=== PATIENT | female | born 1955 | race Caucasian/White ===

== ENCOUNTER 2018-08-27 14:50 | Emergency (ER) | payer BC ==
[2018-08-27 15:06] VITALS: BP 134/85
--- NOTE | 2018-08-27 15:08 | UC ---
Abdominal Pain Female HPI - HPI Summary HPI Summary: 63 yo female presents with RUQ pain for the last 3-4 weeks. She tells me that about a week before rey she developed intermittent "nagging" RUQ pain associated with mild nausea. Since this started has been happening more frequently and pain can reach a 7/10. Eating and drinking does not change her discomfort. She also has noticed that her stools are floating more often over the last week or two. She has family members that have had their gallbladder removed and pt is concerned that her symptoms are related to her gallbladder. She denies fever, SOB, chest pain, vomiting, diarrhea, dysuria. - History of Current Complaint Chief Complaint: UCAbdominalPain Stated Complaint: ABDOMINAL PAIN Time Seen by Provider: 08/27/18 15:07 Hx Obtained From: Patient Hx Last Menstrual Period: post menopause Onset/Duration: Sudden Onset Severity Initially: Mild Severity Currently: Mild Pain Intensity: 1 Pain Scale Used: 0-10 Numeric Location: Discrete At: RUQ Allergies/Adverse Reactions: Allergies Allergy/AdvReac Type Severity Reaction Status Date / Time ciprofloxacin [From Cipro] Allergy Swelling Verified 08/27/18 15:07 Home Medications: Home Medications Multivitamin [Multivitamins] 1 cap PO 08/27/18 [History] [place]-3 Fatty Acids/Fish Oil [Fish Oil 1,000 mg Capsule] 08/27/18 [History] Zaleplon [Sonata] 08/27/18 [History] buPROPion SR TAB* [Wellbutrin SR TAB*] 150 mg PO BID 08/27/18 [History Confirmed 08/27/18] PMH/Surg Hx/FS Hx/Imm Hx - Additional Past Medical History Additional PMH: None - Surgical History Surgical History: None - Family History Known Family History: Positive: None - Social History Occupation: Employed Full-time Lives: With Family Alcohol Use: Occasionally Substance Use Type: None Smoking Status (MU): Never Smoked Tobacco Review of Systems All Other Systems Reviewed And Are Negative: Yes Constitutional: Positive: Negative Skin: Positive: Negative Respiratory: Positive: Negative Cardiovascular: Positive: Negative Gastrointestinal: Positive: Abdominal Pain Neurovascular: Positive: Negative Neurological: Positive: Negative Psychological: Positive: Negative Physical Exam - Summary Physical Exam Summary: GENERAL: NAD. WDWN. No pain distress. SKIN: No rashes, sores, lesions, or open wounds. NECK: Supple. Nontender. No lymphadenopathy. CHEST: CTAB. No r/r/w. No accessory muscle use. Breathing comfortably and in no distress. CV: RRR. Without m/r/g. Pulses intact. Cap refill <2seconds ABDOMEN: Mild RUQ TTP. Negative weinberg sign. Soft. No distention or guarding. No CVA tenderness. Bowel sounds present NEURO: Alert. PSYCH: Age appropriate behavior. Triage Information Reviewed: Yes Vital Signs: Initial Vital Signs Temp 97.0 F 08/27/18 14:58 Pulse 74 08/27/18 14:58 Resp 16 08/27/18 14:58 BP 134/85 08/27/18 14:58 Pulse Ox 97 08/27/18 14:58 Laboratory Tests 08/27/18 15:19 POC Urine Color Yellow POC Urine Clarity Clear POC Urine pH 5.5 POC Ur Specif Melrude >= 1.030 POC Urine Protein Negative POC Ur Glucose (UA) Negative POC Urine Ketones Negative POC Urine Blood Negative POC Urine Nitrite Negative POC Urine Bilirubin Negative POC Urine Urobilinogen 0.2 POC U Leukocyte Esteras Negative Vital Signs Reviewed: Yes Abd Pain Female Course/Dx - Course Course Of Treatment: US: IMPRESSION: Cholelithiasis without biliary duct dilatation. Discussed results with pt. Advised to try low fat diet and will refer to general surgery for further eval. - Differential Dx/Diagnosis Provider Diagnosis: Cholelithiasis Discharge - Sign-Out/Discharge Documenting (check all that apply): Patient Departure All imaging exams completed and their final reports reviewed: No Studies - Discharge Plan Condition: Stable Disposition: HOME Patient Education Materials: Gallstones (ED), Low Fat Diet (ED) Referrals: Park Jimenez MD [Primary Care Provider] - Jamie Gonzales MD [Medical Doctor] - As Soon As Possible Additional Instructions: If you develop a fever, shortness of breath, chest pain, new or worsening symptoms - please call your PCP or go to the ED. Please call General Surgery at the number below to schedule a follow up appointment for further evaluation. - Billing Disposition and Condition Condition: STABLE Disposition: Home - Attestation Statements Provider Attestation: I was available for consult. This patient was seen by the PAULINE. The patient was not presented to, seen by, or examined by me. -Koko
== END 2018-08-27 16:38 | disposition home or self-care (01) ==
LOC: UCEAST 14:50
DX: K80.20 Calculus of gallbladder without cholecystitis without obstruction (principal); Z88.1 Allergy status to other antibiotic agents
CPT/HCPCS: 76705; 81003; 99211; 99212; G0463

== ENCOUNTER 2019-07-13 15:26 | Emergency (ER) | payer BC ==
[2019-07-13 16:20] LABS: ABS Eosinophils 0.1 10^3/ul (0-0.6); ABS Lymphocytes 1.1 10^3/ul (1.0-4.8); ABS Monocytes 0.8 10^3/ul (0-0.8); ABS Neutrophils 3.6 10^3/ul (1.5-7.7); Eosinophil % 2.1 %; Hematocrit 34 % (35-47); Hemoglobin 11.9 g/dL (12.0-16.0); Lymphocyte % 19.5 %; Mean Corpuscular HGB Conc 35 g/dL (31-36); Mean Corpuscular Hemoglobin 31 pg (27-31); Mean Corpuscular Volume 87 fL (80-97); Mean Platelet Volume 7.4 fL (7.4-10.4); Platelet Count 233 10^3/uL (150-450); Red Blood Count 3.89 10^6 /uL (3.70-4.87); Red Cell Distribution Width 12 % (10-15); White Blood Count 5.6 10^3/uL (3.5-10.8)
[2019-07-13 16:35] LABS: Albumin 3.8 g/dL (3.2-5.2); Calcium 9.4 mg/dL (8.6-10.3); Potassium 3.9 mmol/L (3.5-5.0); Total Bilirubin 0.6 mg/dL (0.2-1.0)
[2019-07-13 16:41] LABS: Albumin/Globulin Ratio 1.2 (1-3); BUN/Creatinine Ratio 14.5 (8-20); EGFR African American 93.3 (>60); EGFR Non-African American 77.1 (>60); Globulin 3.1 g/dL (2-4); Total Protein 6.9 g/dL (6.4-8.9)
[2019-07-13 18:13] LABS: Urine Appearance Clear; Urine Bilirubin Negative (Negative); Urine Blood Negative (Negative); Urine Color Yellow; Urine Glucose Negative (Negative); Urine Ketones Trace (Negative); Urine Nitrite Negative (Negative); Urine Protein Negative (Negative); Urine Specific Gravity 1.009 (1.010-1.030); Urine Urobilinogen Negative (Negative)
[2019-07-13 18:19] LABS: Urine Bacteria Absent (Absent); Urine Red Blood Cell Absent (Absent); Urine Squamous Epithelial Cell Present (Absent); Urine White Blood Cell Trace(0-5/hpf) (Absent)
--- NOTE | 2019-07-13 18:49 | ED ---
Abdominal Pain/Female - HPI Summary HPI Summary: Patient is a 64 y/o F presenting to the ED for a chief complaint of fever. On , patient had a cholecystectomy performed by Dr. Vitale at [facility]. Since the surgery, she has felt nausea, urinary frequency, cough, fatigue, decreased appetite, and pain near the incision site on her abdomen. She reports the pain is 3/10 in severity at rest, but is 7/10 in severity doing the exercises recommended by her surgical team. The pain has improved on from 07/12/19. On 07/13/19, patient reports a fever of 101 F. Patient denies vomiting, diarrhea, or rash. She has had a bowel movement since her surgery. She denies any aggravating or alleviating factors. PMHx is not significant. Medications reviewed. Allergies noted. - History of Current Complaint Chief Complaint: EDAbdPain Stated Complaint: GALL BLADDER SURGERY-FEVER Time Seen by Provider: 07/13/19 17:05 Hx Obtained From: Patient Hx Last Menstrual Period: post menopause Onset/Duration: Sudden Onset, Still Present Timing: Constant Severity Initially: Moderate Severity Currently: Moderate Pain Intensity: 5 Pain Scale Used: 0-10 Numeric Location: Diffuse Radiates: No Aggravating Factor(s): Nothing Alleviating Factor(s): Nothing Associated Signs and Symptoms: Positive: Fever - In vitals, 99.5 F, Urinary Symptoms - Urinary frequency, Decreased Appetite, Nausea. Negative: Vomiting, Diarrhea Allergies/Adverse Reactions: Allergies Allergy/AdvReac Type Severity Reaction Status Date / Time ciprofloxacin [From Cipro] Allergy Swelling Verified 08/29/18 21:11 PMH/Surg Hx/FS Hx/Imm Hx Previously Healthy: Yes Endocrine/Hematology History: Denies: Hx Diabetes, Hx Thyroid Disease Cardiovascular History: Denies: Hx Hypercholesterolemia, Hx Hypertension Respiratory History: Denies: Hx Chronic Obstructive Pulmonary Disease (COPD) GI History: Reports: Other GI Disorders - Gallstones Sensory History: Denies: Hx Legally Blind, Hx Deafness Opthamlomology History: Denies: Hx Legally Blind EENT History: Denies: Hx Deafness - Cancer History Hx Chemotherapy: No Hx Radiation Therapy: No - Surgical History Surgical History: Yes Surgery Procedure, Year, and Place: Cholecystectomy Infectious Disease History: No Infectious Disease History: Denies: Hx Hepatitis, Traveled Outside the [place] in Last 30 Days - Family History Known Family History: Positive: Other - Negative breast CA Negative: Diabetes - Social History Occupation: Employed Part-time Lives: With Family Alcohol Use: Occasionally Alcohol Amount: 1x week Hx Substance Use: Yes Substance Use Type: Reports: Marijuana Hx Tobacco Use: No Smoking Status (MU): Never Smoked Tobacco Review of Systems Positive: Fever - In vitals, 99.5 F, Fatigue, Other - Positive decreased appetite Positive: Cough Positive: Abdominal Pain - Near incision site, Nausea. Negative: Vomiting, Diarrhea Positive: frequency - Urinary Negative: Rash All Other Systems Reviewed And Are Negative: Yes Physical Exam - Summary Physical Exam Summary: Constitutional: Well-developed, Well-nourished, Alert. (-) Distressed Skin: Warm, Dry HENT: Normocephalic; Atraumatic Eyes: Conjunctiva normal Neck: Musculoskeletal ROM normal neck. (-) JVD, (-) Stridor, (-) Tracheal deviation Cardio: Rhythm regular, rate normal, Heart sounds normal; Intact distal pulses; Radial pulses are 2+ and symmetric. (-) Murmur Pulmonary/Chest wall: Effort normal. (-) Respiratory distress, (-) Wheezes, (-) Rales Abd: Soft, (-) Distension, (-) Guarding, (-) Rebound. Surgical incision that is clean, dry, and intact, tenderness worse in RUQ than LUQ Musculoskeletal: (-) Edema Lymph: (-) Cervical adenopathy Neuro: Alert, Oriented x3 Psych: Mood and affect Normal Triage Information Reviewed: Yes Vital Signs On Initial Exam: Initial Vitals Temp Pulse Resp BP Pulse Ox 99.5 F 85 16 128/80 98 07/13/19 15:40 07/13/19 15:40 07/13/19 15:40 07/13/19 15:40 07/13/19 15:40 Vital Signs Reviewed: Yes Procedures - Sedation Patient Received Moderate/Deep Sedation with Procedure: No Diagnostics - Vital Signs Vital Signs Temp Pulse Resp BP Pulse Ox 07/13/19 18:00 78 93 07/13/19 17:52 72 131/81 95 07/13/19 17:21 100.5 F 07/13/19 17:17 79 111/88 97 07/13/19 17:16 83 96 07/13/19 15:40 99.5 F 85 16 128/80 98 - Laboratory Lab Results: Lab Results 07/13/19 07/13/19 07/13/19 Range/Units 16:05 16:05 17:50 WBC 5.6 (3.5-10.8) 10^3/uL RBC 3.89 (3.70-4.87) 10^6 /uL Hgb 11.9 L (12.0-16.0) g/dL Hct 34 L (35-47) % MCV 87 (80-97) fL MCH 31 (27-31) pg MCHC 35 (31-36) g/dL RDW 12 (10-15) % Plt Count 233 (150-450) 10^3/uL MPV 7.4 (7.4-10.4) fL Neut % (Auto) 64.1 % Lymph % (Auto) 19.5 % Andrew % (Auto) 14.0 % Eos % (Auto) 2.1 % Baso % (Auto) 0.3 % Absolute Neuts (auto) 3.6 (1.5-7.7) 10^3/ul Absolute Lymphs (auto) 1.1 (1.0-4.8) 10^3/ul Absolute Monos (auto) 0.8 (0-0.8) 10^3/ul Absolute Eos (auto) 0.1 (0-0.6) 10^3/ul Absolute Basos (auto) 0.0 (0-0.2) 10^3/ul Absolute Nucleated RBC 0.0 10^3/ul Nucleated RBC % 0.0 Sodium 140 (135-145) mmol/L Potassium 3.9 (3.5-5.0) mmol/L Chloride 105 (101-111) mmol/L Carbon Dioxide 27 (22-32) mmol/L Anion Gap 8 (2-11) mmol/L BUN 11 (6-24) mg/dL Creatinine 0.76 (0.51-0.95) mg/dL Est GFR ( Amer) 93.3 (>60) Est GFR (Non-Af Amer) 77.1 (>60) BUN/Creatinine Ratio 14.5 (8-20) Glucose 97 (70-100) mg/dL Calcium 9.4 (8.6-10.3) mg/dL Total Bilirubin 0.60 (0.2-1.0) mg/dL AST 39 (13-39) U/L ALT 67 H (7-52) U/L Alkaline Phosphatase 104 (34-104) U/L Total Protein 6.9 (6.4-8.9) g/dL Albumin 3.8 (3.2-5.2) g/dL Globulin 3.1 (2-4) g/dL Albumin/Globulin Ratio 1.2 (1-3) Lipase 11 (11.0-82.0) U/L Urine Color Yellow Urine Appearance Clear Urine pH 8.0 (5-9) Ur Specific [place] 1.009 L (1.010-1.030) Urine Protein Negative (Negative) Urine Ketones Trace A (Negative) Urine Blood Negative (Negative) Urine Nitrate Negative (Negative) Urine Bilirubin Negative (Negative) Urine Urobilinogen Negative (Negative) Ur Leukocyte Esterase Trace A (Negative) Urine WBC (Auto) Trace(0-5/hpf) (Absent) Urine RBC (Auto) Absent (Absent) Ur Squamous Epith Cells Present A (Absent) Urine Bacteria Absent (Absent) Urine Glucose Negative (Negative) Result Diagrams: 07/13/19 16:05 07/13/19 16:05 Lab Statement: Any lab studies that have been ordered have been reviewed, and results considered in the medical decision making process. - Radiology Chest X-ray Radiology Interpretation Completed By: ED Physician Summary of Radiographic Findings: Chest X-ray IMPRESSION: no acute process. Reviewed and interpreted by Dr. Sotelo, pending official radiology report. Abdominal Pain Fem Course/Dx - Course Course Of Treatment: Patient is here 2 days after a cholecystectomy. Patient's main concern was a fever that she noticed home. Patient is overall well- appearing upon arrival here with a abdominal exam consistent with being postoperative day 2 from a cholecystectomy. Patient had blood work performed which was all grossly unremarkable. Patient had negative chest x-ray for pneumonia and a negative UA for UTI. Patient's abdominal pain is gotten better since yesterday. I do not think patient needed an emergent CT scan this time. Patient was comfortable discharged with the agreement that she would return if she had any worsening symptoms. - Diagnoses Provider Diagnoses: Fever, Status post cholecystectomy Discharge ED - Sign-Out/Discharge Documenting (check all that apply): Patient Departure - Discharge - Discharge Plan Condition: Stable Disposition: HOME Patient Education Materials: Laparoscopic Cholecystectomy (DC) Referrals: O'Katina,Park, MD [Primary Care Provider] - Additional Instructions: Return if you have worsening fever, worsening abdominal pain, multiple episodes of vomiting, inability to have a bowel movement, chest pain, trouble breathing, or worsening cough. Follow up with your primary care provider on your scheduled appointment. - Billing Disposition and Condition Condition: STABLE Disposition: Home - Attestation Statements Document Initiated by Scribe: Yes Documenting Scribe: Kiera Ely Provider For Whom Pal is Documenting (Include Credential): Bebeto Sotelo MD Scribe Attestation: Kiera Mcallister, scribed for Bebeto Sotelo MD on 07/13/19 at 1956. Scribe Documentation Reviewed: Yes Provider Attestation: The documentation as recorded by the Kiera foster accurately reflects the service I personally performed and the decisions made by Bebeto licea MD Status of Scribe Document: Viewed
[2019-07-13 18:51] VITALS: BP 121/81
== END 2019-07-13 19:12 | disposition home or self-care (01) ==
LOC: ED 15:26
DX: R50.9 Fever, unspecified (principal); Z90.49 Acquired absence of other specified parts of digestive tract; Z88.1 Allergy status to other antibiotic agents
CPT/HCPCS: 36415; 71046; 80053; 81003; 81015; 83690; 85025; 87086; 99282